=== PATIENT | male | born 1970 | race Caucasian/White ===

== ENCOUNTER 2017-04-20 20:21 | Emergency (ER) | payer BC ==
[~2017-04-20] VITALS: Ht 188 cm; Wt 125.0 kg
[~2017-04-20 20:21] MED LIST: NOHOMEMEDS; PLAVIX75 MG PO
[2017-04-20] MEDS ORDERED: PERCOCET 5/31 TABLET PO (21:28)
[2017-04-20 22:00] VITALS: BP 129/85
== END 2017-04-20 22:13 | disposition home or self-care (01) ==
LOC: EME 20:21
DX: M25.462 Effusion, left knee (principal); W10.9XXA Fall (on) (from) unspecified stairs and steps, initial encounter; Z87.820 Personal history of traumatic brain injury; Z87.891 Personal history of nicotine dependence; Z88.6 Allergy status to analgesic agent
CPT/HCPCS: 73564; 99281; 99284